=== PATIENT | male | born 1995 | race Native Hawaiian/Other Pacific Islander ===

== ENCOUNTER 2024-11-12 10:34 | Day surgery (SDC) | payer OTHER, SELFPAY ==
[2024-11-04 08:57] VITALS: BMI 28.5
[2024-11-12 10:57] VITALS: BMI 28.5
[2024-11-12 11:04] VITALS: BP 120/75; PULSE 74; RESP 16; TEMP 36.9; O2SAT 100
[2024-11-12] MEDS: LACTATED RINGERS 1,000 ML 42 ML IV (11:16)
[2024-11-12] MEDS: ACETAMINOPHEN 325 MG TABLET 975 MG PO (11:16)
--- NOTE | 2024-11-12 13:16 | SUR.OPER ---
Addendum entered by Katya Bergman R.N. 11/12/24 13:59: Supine on padded OR bed, head on pillow, arms secured on padded arm boards at <90 degrees abduction, legs uncrossed, safety belt at torso, tape over blanket over non operative lower leg, bump under left hip. Dr. Mo in room at final positioning, all pressure points padded. Original Note: Supine on padded OR bed, head on pillow, arms secured on padded arm boards at <90 degrees abduction, legs uncrossed, safety belt at thigh, tape over blanket over lower legs, bump under left hip.
--- NOTE | 2024-11-12 13:18 | PM.PREOP ---
Pre-operative Note Interval Note History & Physical reviewed/Exam performed by Physician: Yes Changes to H&P: No
[2024-11-12] MEDS: CEFAZOLIN 2 GM/100 ML PREMIX 100 ML IV (13:31)
[2024-11-12 14:29] VITALS: BP 127/78; PULSE 68; RESP 12; TEMP 37.1; O2SAT 100
[2024-11-12] MEDS: BUPIVACAINE 0.25% W/ EPI 30 ML VIAL INJ (14:35)
--- NOTE | 2024-11-12 14:40 | P.OP_ITS ---
Operative Date/Time/Diagnoses Date of procedure: 11/12/24 Time of procedure: 14:41 Pre-op diagnosis: Traumatic hallux valgus deformity left foot, turf toe variant with medial collateral tear Post-op diagnosis: same Procedure & Clinicians Procedure: Modified Amador/silver bunionectomy left great toe with repair medial collateral ligament and medial capsule from traumatic left bunion. CPT code 24900 Same procedure as scheduled: Yes Indications: The patient is a 29-year-old male that was playing sports and sustained a traumatic bunion of the left great toe this is a turf toe type variant that tears the medial collateral ligament and medial sesamoid connection resulting in a traumatic hallux valgus deformity. MRI confirmed the findings. Patient was indicated for a surgical treatment for repair of his traumatic bunion, medial collateral ligament full-thickness tear. The risks and benefits of the procedure have been discussed with the patient and given the opportunity to ask questions. The risks of surgery include but are not limited to infection, malunion, nonunion, persistence of pain, damage to nerves and blood vessels, po sttraumatic arthritis, DVT, PE, coardiopulmonary complications and . The patient expressed a thorough understanding of the risks and benefits of surgery and has elected to proceed. Consent was signed. Surgeon: Tova Mo Click Yes if Unassisted: Yes Anesthesia Type: General and Local Operative Notes Findings: Traumatic avulsion medial collateral ligament from medial 1st metatarsal with hallux valgus deformity. After performing silver bunionectomy to remove the medial eminence and freshened the bone medial collateral ligament and capsule were repaired using a Arthrex 2.2 x 4 mm anchor this restored alignment and concentrate 1st MTP joint with the appropriate range of motion and noted to reduce sesamoids in place. Closure Type: primary Specimen(s): none sent Prosthetic devices, grafts, tissues, transplants, or devices: Arthrex 2.2 x 4 mm corkscrew anchor Estimated Blood Loss (mL): 10 Blood products transfused: none Tourniquet time (min): 20 Procedure in detail: Patient was seen in the preoperative area the site of surgery was marked and informed consent confirmed this was the left great toe. Patient was brought to the operating room by the anesthesia team anesthesia was administered. The patient was positioned supine on operative table. Nonsterile thigh tourniquet was applied on the operative side. Bony prominences were well padded. The left lower extremity was prepped and draped in the standard sterile fashion and a formal time-out procedure was performed confirming the patient's side and site of surgery administration of the appropriate preoperative antibiotic and implants were in the room when accounted for. All were in agreement. Attention turned to the left leg the Esmarch was used for exsanguination the tourniquet raised on the thigh to 250 were utilized mercury. Medial incision at the level of the 1st MTP joint was taken down midline. Care was taken to identify and protect the dorsomedial cutaneous nerve branch the capsule was then incised longitudinally. Below the capsule the avulsed medial collateral ligament was visible off the 1st metatarsal. Flaps were reflected a TTS saw was then used to make the silver osteotomy along the metatarsal and head and freshened the bone. Once this was completed the corkscrew suture anchor from the Arthrex set was opened this was drilled with a K-wire and then the corkscrew placed. Next a stack of ray tecs was placed between the 1st and 2nd toes allowing correction of the hallux valgus then the medial collateral ligament and capsule were repaired in a [id number] fashion using the 2-0 FiberWires from the suture anchor redundant capsule was excised. Alignment was checked under intraoperative fluoroscopy for concentric 1st MTP joint and appropriate alignment and reduction of the previous traumatic hallux valgus. Was also noted to improve sesamoid alignment. Range of motion was full. After the capsule and collateral ligament were repaired with a tension to the medial sesamoid metatarsal ligamentous well a 2-0 Vicryl was used to over-sew this area then a 4-0 Monocryl subcutaneous and a 4-0 nylon in the skin. 0.25% Marcaine with epinephrine was injected for local anesthesia and a dressing was placed with Xeroform gauze Prachi wrap and a bunion style Myerson dressing was applied followed by a posterior splint in neutral position with the foot plate. The patient was then awoken and taken to the anesthesia room in good condition. Was noted by the anesthesia team during surgery the patient developed a nosebleed from a nostril this was managed with a hemostatic agent/device. And with ENT consultation and PACU Complications: other (The patient was noted to have a nosebleed intraoperative this was noted by anesthesia personnel and treated with a hemostatic device.) Post-operative Condition: stable Disposition: PACU Plan for aftercare: Touchdown or nonweightbearing 2 weeks for incision healing then we will progress weight-bearing in a boot /bunion splint follow up in clinic.
[2024-11-12 14:41] VITALS: BP 114/74; PULSE 85; RESP 12; TEMP 36.6; O2SAT 99
[2024-11-12 14:46] VITALS: BP 118/72; PULSE 73; RESP 12; TEMP 36.6; O2SAT 98
[2024-11-12] MEDS: OXYMETAZOLINE NASAL SPRAY 30 ML 2 SPRAYS NASAL (15:04)
[2024-11-12] MEDS: OXYCODONE IR 5 MG TABLET PO ×2 (15:06→16:08)
--- NOTE | 2024-11-12 15:14 | SUR.PHASEII ---
Pt with uncontrolled epistaxis in OR. Rhino rocket placed by Dr. Plasencia who consulted with Dr. Marie, ENT. Per Dr. Marie, soak rhino rocket with Afrin and wait 30-45 minutes to remove it.
[2024-11-12] MEDS: HYDROMORPHONE 0.5 MG INJ IV (15:37)
--- NOTE | 2024-11-12 15:43 | SUR.PHASEII ---
Luis segal removed at 1543 by ADAM Jean-Baptiste. 2 puffs afrin to right nostril.
[2024-11-12 15:47] VITALS: BP 115/75; PULSE 75; RESP 15; O2SAT 100
--- NOTE | 2024-11-12 16:06 | SUR.OPER ---
Pt had right nare nose bleed during procedure, Dr. Plasencia aware. chronometer adjuster notified. See anesthesia record of care.
--- NOTE | 2024-11-12 16:41 | PM.PROC.1 ---
Procedures Date/Time Date of procedure: 11/12/24 Time of procedure: 13:50 Epistaxis Control Nostril: right (After induction of GA and uncomplicated placement of LMA for foot surgery, blood was noted streaming from the R nare. There was no apparent source of trauma or other cause of bleeding. Gauze and direct pressure failed to achieve hemostasis. ) Direct inspection: yes and unable to visualize Device inserted: other (Rapid Rhino 4.5, with approximately 2cc air inflation) Patient tolerated procedure: no complications and other (device placed under GA during case. In PACU, oxymetazoline administered around nasal device. After approximately 30min, adequate hemostasis was achieved, and the device was removed. No further bleeding was noted and pt was discharged home. )
== END 2024-11-12 16:25 | disposition home or self-care (01) ==
PROVIDERS: Referring Provider Orthopaedic Surgery Foot and Ankle Surgery; Visit Provider Orthopaedic Surgery Foot and Ankle Surgery
PROC: 0QBP0ZZ Excision of Left Metatarsal, Open Approach (ICD-10-PCS; CPT 28292; principal; 2024-11-12 12:15)
DX: M20.12 Hallux valgus (acquired), left foot (principal); M21.612 Bunion of left foot; R04.0 Epistaxis
CPT/HCPCS: 28295; C1713; J0690; J1100; J1171; J2250; J2405; J2704; J3010